=== PATIENT | female | born 1990 | race Caucasian/White ===

== ENCOUNTER 2018-04-24 06:37 | Inpatient (IN) ==
[2018-04-24] MEDS ORDERED: FAMOTIDINE 20 MG/2 ML VIAL IV ONE (07:06)
[2018-04-24] MEDS ORDERED: ceFAZolin 2,000 MG in PREMIX 1 EACH IV ONE (07:06)
[2018-04-24] MEDS ORDERED: CITRIC ACID/SODIUM CITRATE 30 ML UDCUP PO ONE (07:06)
[2018-04-24] MEDS ORDERED: OXYTOCIN 10 UNIT/ML VIAL IM ONE (07:10)
[2018-04-24] MEDS ORDERED: OXYTOCIN/LR 30 UNIT/1,000 ML BAG IV ONE (07:10)
[2018-04-24] MEDS ORDERED: LACTATED RINGERS 1,000 ML IV ONE (07:10)
[2018-04-24] MEDS ORDERED: LACTATED RINGERS 1,000 ML IV SCH ×2 (07:30→10:30)
[2018-04-24 07:36] LABS: Basophils % 0.2 % (0.0-0.8); Eosinophils # 0.1 10*3/uL (0.0-0.87); Eosinophils % 0.4 % (0.00-10.9); Hematocrit 36.6 VOL% (35.7-47.0); Hemoglobin 12.1 GM/DL (12.0-16.0); Immature Granulocytes % 0.5 %; Immature Granulocytes Absolute 0.06 #; Lymphocytes # 2.5 10*3/uL (1.4-4.0); Lymphocytes % 20.6 % (21.3-54.2); Mean Corpuscular HGB Conc 33.1 GM/DL (32-36); Mean Corpuscular Hemoglobin 29 PG (27-34); Mean Corpuscular Volume 87.6 FL (87-102); Mean Platelet Volume 11.3 FL (9.6-12.0); Monocytes # 0.9 10*3/uL (0.11-0.8); Monocytes % 7.1 % (1.7-12.7); Neutrophils # 8.7 10*3/uL (1.4-7.4); Neutrophils % 71.2 % (38.7-73.9); Platelet Count 192 T/CUMM (130-400); Red Blood Count 4.18 MC/CUMM (3.8-5.5); Red Cell Distribution Width 13.6 % (9.3-17.3); White Blood Count 12.2 T/CUMM (4-12)
[2018-04-24 08:06] LABS: Alanine Aminotransferase 24 U/L (13-56); Albumin 2.5 G/DL (3.4-5.0); Alkaline Phosphatase 213 U/L (45-117); Aspartate Amino Transferase 28 U/L (0-37); Bilirubin,Total < 0.39 MG/DL (0.2-1.0); Blood Urea Nitrogen 11 MG/DL (7-18); Calcium 8.7 MG/DL (8.5-10.1); Glucose 73 MG/DL (74-106); Osmolality,Calculated 274.5 MOS/KG (273-304); Sodium 139 MMOL/L (136-145); Total Protein 6.5 G/DL (6.4-8.3)
[2018-04-24] MEDS ORDERED: ACETAMINOPHEN 1,000 MG/100 ML VIAL IV ONE (08:43)
[2018-04-24 09:58] LABS: Cord Arterial Blood HCO3 22.4 MMOL/L
[2018-04-24 10:00] LABS: Cord Venous Blood HCO3 25.4 MMOL/L; Cord Venous Blood PCO2 41.4 MMHG; Cord Venous Blood PO2 34.9 MMHG
[2018-04-24 10:03] LABS: Apearance,Urine CLEAR (Clear); Bilirubin,Urine Negative (Negative); Blood, Urine Negative (Negative); Glucose,Urine (UA) Negative (Negative); Ketones,Urine Negative (Negative); Mucus,Urine Occasional /LPF (Occasional); Nitrite,Urine Negative (Negative); Protein,Urine Negative; RBC,Urine 1 /HPF (0-4); Urine Color Straw (Yellow); Urine Specific Gravity 1.009 (1.001-1.035); Urine Urobilinogen < 2.0 EU/DL (0.2-1.0); WBC,Urine <1 /HPF (0-6)
[2018-04-24] MEDS ORDERED: fentaNYL 100 MCG/2 ML VIAL ONE (10:16)
[2018-04-24] MEDS ORDERED: BUPIVACAINE SPINAL 0.75% 2 ML AMP SPINAL ONE (10:17)
[2018-04-24] MEDS ORDERED: SIMETHICONE CHEW 80 MG TABLET PO PRN (10:21)
[2018-04-24] MEDS ORDERED: IBUPROFEN 800 MG TABLET PO PRN (10:21)
[2018-04-24] MEDS ORDERED: ACETAMINOPHEN 325 MG TABLET PO PRN (10:21)
[2018-04-24] MEDS ORDERED: OXYTOCIN/LR 20 UNIT/1,000 ML BAG IV ONE (10:21)
[2018-04-24] MEDS ORDERED: ONDANSETRON 4 MG/2 ML VIAL IV PRN (10:21)
[2018-04-24] MEDS ORDERED: RHO(D) IMMUNE GLOBULIN 300 MCG SYRINGE IM ONE (10:21)
[2018-04-24] MEDS ORDERED: MORPHINE 10 MG/1 ML VIAL IV PRN (13:46)
[2018-04-24] MEDS ORDERED: PHENYLEPHRINE 1 MG/10 ML SYRINGE IV ONE (16:27)
[2018-04-24] MEDS: ceFAZolin 1,000 MG in SYRINGE 1 EACH IV SCH (17:25)
[2018-04-24 18:08] LABS: Hematocrit 30.7 VOL% (35.7-47.0); Hemoglobin 10.2 GM/DL (12.0-16.0)
[2018-04-24] MEDS: DOCUSATE SODIUM 100 MG CAPSULE PO SCH (21:26)
[2018-04-25] MEDS: ceFAZolin 1,000 MG in SYRINGE 1 EACH IV SCH (01:53)
[2018-04-25] MEDS: IBUPROFEN 800 MG TABLET PO PRN ×2 (06:31→13:57)
[2018-04-25 07:02] LABS: Basophils # 0.1 10*3/uL (0.0-0.2); Basophils % 0.3 % (0.0-0.8); Eosinophils # 0.1 10*3/uL (0.0-0.87); Eosinophils % 0.3 % (0.00-10.9); Hematocrit 34.8 VOL% (35.7-47.0); Hemoglobin 11.8 GM/DL (12.0-16.0); Immature Granulocytes % 0.5 %; Lymphocytes # 2.5 10*3/uL (1.4-4.0); Lymphocytes % 13.6 % (21.3-54.2); Mean Corpuscular HGB Conc 33.9 GM/DL (32-36); Mean Corpuscular Hemoglobin 29 PG (27-34); Mean Corpuscular Volume 85.1 FL (87-102); Monocytes # 0.9 10*3/uL (0.11-0.8); Monocytes % 4.8 % (1.7-12.7); Neutrophils # 14.7 10*3/uL (1.4-7.4); Neutrophils % 80.5 % (38.7-73.9); Platelet Count 189 T/CUMM (130-400); Red Blood Count 4.09 MC/CUMM (3.8-5.5); Red Cell Distribution Width 13.9 % (9.3-17.3); White Blood Count 18.3 T/CUMM (4-12)
[2018-04-25] MEDS: MULTIVITAMIN (PRENATAL) TABLET PO SCH (08:36)
[2018-04-25] MEDS: DOCUSATE SODIUM 100 MG CAPSULE PO SCH ×2 (08:36→20:23)
[2018-04-25] MEDS: MAGNESIUM HYDROXIDE SUSP 30 ML UDCUP PO PRN (08:37)
[2018-04-26 07:17] VITALS: BP 104/56
[2018-04-26] MEDS: MAGNESIUM HYDROXIDE SUSP 30 ML UDCUP PO PRN (08:41)
[2018-04-26] MEDS: DOCUSATE SODIUM 100 MG CAPSULE PO SCH (08:41)
[2018-04-26] MEDS: MULTIVITAMIN (PRENATAL) TABLET PO SCH (08:43)
[2018-04-26] MEDS ORDERED: MEASLES/MUMPS/RUBELLA VACCINE 0.5 ML VIAL SUBCUT ONE (10:51)
== END 2018-04-26 12:15 | disposition home or self-care (01) | DRG 766 ==
LOC: N.LDOUT 06:37 → N.LD 06:38 → N.OB 15:18
PROVIDERS: ADMIT Obstetrics & Gynecology; ATTEND Obstetrics & Gynecology
PROC: LDCSECT (ICD-10-PCS; 2018-04-24 09:00)

== ENCOUNTER 2022-02-07 05:57 | Inpatient (IN) ==
[2022-02-07] MEDS ORDERED: CITRIC ACID/SODIUM CITRATE 30 ML UDCUP PO PRN (06:22)
[2022-02-07] MEDS ORDERED: FAMOTIDINE 20 MG/2 ML VIAL IV PRN (06:22)
[2022-02-07] MEDS ORDERED: LACTATED RINGERS 1,000 ML IV PRN (06:22)
[2022-02-07 06:49] LABS: Basophils % 0.3 % (0.0-0.8); Eosinophils # 0.1 10*3/uL (0.0-0.87); Eosinophils % 0.5 % (0.00-10.9); Hematocrit 36.6 VOL% (35.7-47.0); Hemoglobin 11.9 GM/DL (12.0-16.0); Immature Granulocytes % 0.6 %; Immature Granulocytes Absolute 0.07 #; Lymphocytes # 2.8 10*3/uL (1.4-4.0); Lymphocytes % 24.7 % (21.3-54.2); Mean Corpuscular HGB Conc 32.5 GM/DL (32-36); Mean Corpuscular Volume 85.7 FL (87-102); Mean Platelet Volume 10.1 FL (9.6-12.0); Monocytes % 5.6 % (1.7-12.7); Neutrophils % 68.3 % (38.7-73.9); Platelet Count 274 T/CUMM (130-400); Red Blood Count 4.27 MC/CUMM (3.8-5.5); White Blood Count 11.2 T/CUMM (4-12)
[2022-02-07] MEDS ORDERED: ceFAZolin 2,000 MG/50 ML DUPLEX IV ONE (07:00)
[2022-02-07 07:09] LABS: Alanine Aminotransferase 11 U/L (13-56); Albumin 2.5 G/DL (3.4-5.0); Alkaline Phosphatase 182 U/L (45-117); Aspartate Amino Transferase 20 U/L (0-37); Bilirubin,Total < 0.39 MG/DL (0.20-1.00); Blood Urea Nitrogen 12 MG/DL (7-18); Calcium 8.6 MG/DL (8.5-10.1); Carbon Dioxide 25 MMOL/L (21-32); Estimated Glom Filtration Rate 132 ML/MIN; Glucose 85 MG/DL (74-106); Osmolality,Calculated 275.5 MOS/KG (273-304); Potassium 4.1 MMOL/L (3.5-5.1); Sodium 139 MMOL/L (136-145); Total Protein 6.9 G/DL (6.4-8.2)
[2022-02-07] MEDS ORDERED: OXYTOCIN/LR 30 UNIT/1,000 ML BAG IV ONE (07:15)
[2022-02-07] MEDS ORDERED: OXYTOCIN 10 UNIT/ML VIAL IM ONE (07:15)
[2022-02-07] MEDS ORDERED: TRANEXAMIC ACID 1,000 MG/10 ML VIAL ONE (07:25)
[2022-02-07] MEDS ORDERED: OXYTOCIN/LR 20 UNIT/1,000 ML BAG IV ONE ×2 (07:25→09:58)
[2022-02-07] MEDS ORDERED: miSOPROStoL 200 MCG TABLET ONE (07:25)
[2022-02-07] MEDS ORDERED: CARBOPROST TROMETHAMINE 250 MCG/ML AMP IM ONE (07:25)
[2022-02-07] MEDS ORDERED: SODIUM CHLORIDE 0.9% 0 ML IV ONE (07:25)
[2022-02-07] MEDS ORDERED: METHYLERGONOVINE 0.2 MG/1 ML AMP ONE (07:25)
[2022-02-07] MEDS ORDERED: ONDANSETRON 4 MG/2 ML VIAL ONE (08:39)
[2022-02-07] MEDS ORDERED: PHENYLEPHRINE 1 MG/10 ML SYRINGE IV ONE (09:00)
[2022-02-07] MEDS ORDERED: ePHEDrine 50 MG/ML VIAL ONE (09:00)
[2022-02-07] MEDS ORDERED: BUPIVACAINE SPINAL 0.75% 2 ML AMP SPINAL ONE ×2 (09:00→09:06)
[2022-02-07] MEDS ORDERED: LACTATED RINGERS 1,000 ML IV ONE (09:01)
[2022-02-07] MEDS ORDERED: ACETAMINOPHEN INJ 1,000 MG/100 ML VIAL IV ONE (09:02)
[2022-02-07] MEDS ORDERED: KETOROLAC 30 MG/1 ML VIAL ONE (09:02)
[2022-02-07 09:27] LABS: Cord Arterial Blood HCO3 19.3 MMOL/L
[2022-02-07 09:30] LABS: Cord Venous Blood HCO3 23.9 MMOL/L; Cord Venous Blood PCO2 55.8 MMHG; Cord Venous Blood PO2 < 19.0 MMHG
[2022-02-07 09:34] LABS: Bilirubin,Urine Negative (Negative); Blood, Urine Negative (Negative); Glucose,Urine (UA) Negative (Negative); Ketones,Urine Trace mg/dL (Negative); Mucus,Urine Occasional /LPF (Occasional); Nitrite,Urine Negative (Negative); Protein,Urine Negative (Negative); RBC,Urine 1 /HPF (0-4); Squamous Epithelial Cell,Urine Occasional /HPF (0-10); Urine Appearance Clear (Clear); Urine Color Yellow (Yellow); Urine Urobilinogen 0.2 eU/dL (<2.0)
[2022-02-07] MEDS ORDERED: ONDANSETRON 4 MG/2 ML VIAL IV PRN (09:58)
[2022-02-07] MEDS ORDERED: SIMETHICONE CHEW 80 MG TABLET PO PRN (09:58)
[2022-02-07] MEDS ORDERED: RHO(D) IMMUNE GLOBULIN 300 MCG SYRINGE IM ONE (09:58)
[2022-02-07] MEDS ORDERED: ACETAMINOPHEN 325 MG TABLET PO PRN (09:58)
[2022-02-07] MEDS ORDERED: LACTATED RINGERS 1,000 ML IV SCH (10:00)
[2022-02-07] MEDS ORDERED: KETOROLAC 30 MG/1 ML VIAL IV PRN (15:00)
[2022-02-07] MEDS ORDERED: ACETAMINOPHEN 500 MG TABLET PO PRN (15:00)
[2022-02-07] MEDS: KETOROLAC 30 MG/1 ML VIAL IV SCH ×2 (15:57→22:09)
[2022-02-07] MEDS: ACETAMINOPHEN 500 MG TABLET PO SCH ×2 (15:58→22:01)
[2022-02-07 17:20] LABS: Basophils % 0.3 % (0.0-0.8); Eosinophils % 0.1 % (0.00-10.9); Hematocrit 28.8 VOL% (35.7-47.0); Hemoglobin 9.6 GM/DL (12.0-16.0); Immature Granulocytes % 0.4 %; Immature Granulocytes Absolute 0.06 #; Lymphocytes # 2.8 10*3/uL (1.4-4.0); Lymphocytes % 17.6 % (21.3-54.2); Mean Corpuscular HGB Conc 33.3 GM/DL (32-36); Mean Corpuscular Volume 83.5 FL (87-102); Mean Platelet Volume 9.9 FL (9.6-12.0); Monocytes % 6.4 % (1.7-12.7); Neutrophils % 75.2 % (38.7-73.9); Platelet Count 221 T/CUMM (130-400); Red Blood Count 3.45 MC/CUMM (3.8-5.5); White Blood Count 15.7 T/CUMM (4-12)
[2022-02-07] MEDS: DOCUSATE SODIUM 100 MG CAPSULE PO SCH (22:00)
[2022-02-08] MEDS: KETOROLAC 30 MG/1 ML VIAL IV SCH (02:56)
[2022-02-08] MEDS: ACETAMINOPHEN 500 MG TABLET PO SCH (04:31)
[2022-02-08 04:52] LABS: Basophils % 0.2 % (0.0-0.8); Eosinophils # 0.2 10*3/uL (0.0-0.87); Eosinophils % 1.6 % (0.00-10.9); Hematocrit 31.8 VOL% (35.7-47.0); Hemoglobin 10.3 GM/DL (12.0-16.0); Immature Granulocytes % 0.4 %; Immature Granulocytes Absolute 0.06 #; Lymphocytes # 2.2 10*3/uL (1.4-4.0); Lymphocytes % 14.8 % (21.3-54.2); Mean Corpuscular HGB Conc 32.4 GM/DL (32-36); Mean Corpuscular Volume 84.6 FL (87-102); Mean Platelet Volume 9.8 FL (9.6-12.0); Monocytes % 6.2 % (1.7-12.7); Neutrophils % 76.8 % (38.7-73.9); Platelet Count 223 T/CUMM (130-400); Red Blood Count 3.76 MC/CUMM (3.8-5.5); Red Cell Distribution Width 14.1 % (9.3-17.3); White Blood Count 14.6 T/CUMM (4-12)
[2022-02-08] MEDS: MAGNESIUM HYDROXIDE SUSP 30 ML UDCUP PO PRN (08:56)
[2022-02-08] MEDS: FERROUS SULFATE 325 MG TABLET PO SCH ×2 (08:56→21:05)
[2022-02-08] MEDS: DOCUSATE SODIUM 100 MG CAPSULE PO SCH ×2 (08:56→21:05)
[2022-02-08] MEDS: MULTIVITAMIN (PRENATAL) TABLET PO SCH (08:56)
[2022-02-08] MEDS: METOCLOPRAMIDE 10 MG TABLET PO SCH ×2 (08:57→17:15)
[2022-02-08] MEDS ORDERED: HYDROCORTISONE 1% CREAM 28 GM TUBE TOP PRN (12:49)
[2022-02-08] MEDS: IBUPROFEN 800 MG TABLET PO PRN ×2 (13:40→23:36)
[2022-02-09] MEDS: METOCLOPRAMIDE 10 MG TABLET PO SCH ×2 (06:46→09:21)
[2022-02-09] MEDS: DOCUSATE SODIUM 100 MG CAPSULE PO SCH (09:21)
[2022-02-09] MEDS: MAGNESIUM HYDROXIDE SUSP 30 ML UDCUP PO PRN (09:21)
[2022-02-09] MEDS: FERROUS SULFATE 325 MG TABLET PO SCH (09:21)
[2022-02-09] MEDS: MULTIVITAMIN (PRENATAL) TABLET PO SCH (09:22)
[2022-02-09 11:40] VITALS: BP 118/81
== END 2022-02-09 12:35 | disposition home or self-care (01) | DRG 788 ==
LOC: N.LD 05:57 → N.OB 12:51
PROVIDERS: ADMIT Obstetrics & Gynecology; ATTEND Obstetrics & Gynecology
PROC: LDCSECT (ICD-10-PCS; 2022-02-07 08:40)